=== PATIENT | female | born 1940 | race Caucasian/White ===

== ENCOUNTER → 2024-04-30 15:06 | Outpatient (CLI) | payer MEDICARE, SELFPAY ==
[2024-04-30 15:54] LABS: Add Manual Diff / Slide Review NO; Basophils Absolute Auto 0 /uL (0-100); Basophils Percent Auto 0.6 % (0-2); Eosinophils Absolute Auto 200 /uL (0-450); Eosinophils Percent Auto 2.5 % (2-4); Hematocrit 41.3 % (36-46); Hemoglobin 13.7 g/dL (12.0-16.0); Lymphocytes Absolute Auto 2000 /uL (1100-4500); Lymphocytes Percent Auto 31.2 % (25-40); Mean Corpuscular HGB Conc 33.1 % (30-36); Mean Corpuscular Hemoglobin 29.4 PG (26-34); Mean Corpuscular Volume 88.8 fL (80-100); Monocytes Absolute Auto 400 /uL (0-900); Monocytes Percent Auto 6.7 % (3-14); Neutrophils Absolute Auto 3900 /uL (1500-7000); Platelet Count 282 X10^3/uL (150-400); Red Blood Cell Count 4.65 X10^6/uL (4.0-5.2); Red Cell Distribution Width 13.4 % (11.6-14.8); White Blood Cell Count 6.6 X10^3/uL (4.5-11.0)
[2024-04-30 16:12] LABS: Alanine Aminotransferase 19 IU/L (<35); Albumin 4.1 g/dL (3.5-5.0); Albumin Globulin Ratio 1.5 (1.0-2.8); Alkaline Phosphatase 61 U/L (38-126); Aspartate Aminotransferase 25 IU/L (14-36); BUN Creatinine Ratio 23.5 (6-22); Bilirubin Total 0.5 mg/dL (0.2-1.3); Blood Urea Nitrogen 19 mg/dL (7-17); Carbon Dioxide 27 mmol/L (22-32); Chloride 105 mmol/L (98-107); Cholesterol 193 mg/dL (140-199); Estimated Glomerular Filt Rate > 60 mL/min (>60); Globulin 2.7 g/dL (1.7-4.1); Glucose 102 mg/dL (80-110); HDL Cholesterol 49 mg/dL (40-60); HEMOLYSIS < 15 (0-50); LDL Cholesterol Calculated 124 mg/dL (<100); Potassium 4.8 mmol/L (3.4-5.1); Sodium 139 mmol/L (137-145); Total Protein 6.8 g/dL (6.3-8.2); Triglycerides 102 mg/dL (35-150)
[2024-04-30 16:45] LABS: TSH w/ Reflex to FT4 1.92 uIU/mL (0.47-4.68)
== END ==
LOC: LAB 15:09
PROVIDERS: PCP Nurse Practitioner Family; Referring Provider Nurse Practitioner Family; Visit Provider Nurse Practitioner Family
DX: I10 Essential (primary) hypertension (principal); E03.9 Hypothyroidism, unspecified; G47.30 Sleep apnea, unspecified; E78.5 Hyperlipidemia, unspecified
CPT/HCPCS: 36415; 80053; 80061; 84443; 85025

== ENCOUNTER → 2024-07-22 09:57 | Outpatient (CLI) | payer MEDICARE, MEDICAID, SELFPAY ==
[2024-07-22 11:39] LABS: Appearance Urine UA CLEAR; Bilirubin Urine UA NEGATIVE (NEGATIVE); Color Urine UA YELLOW; Glucose Urine UA NEGATIVE (Negative); Ketones Urine UA NEGATIVE (NEGATIVE); Leukocyte Esterase Urine UA NEGATIVE (NEGATIVE); Nitrite Urine UA NEGATIVE (Negative); Occult Blood Urine UA TRACE-INTACT (Negative); Protein Urine UA NEGATIVE (Negative); Specific Gravity Urine UA >=1.030 (1.000-1.035); Urobilinogen Urine UA 0.2 E.U./dL (0.2)
[2024-07-22 11:50] LABS: Bacteria Urine Occasional (0-1); Culture Indicated Urine Cult Not Indicated; Mucus Urine 1+ (Negative); RBC Urine 0-1/HPF (0-5/HPF); Squamous Epithelial Cell Urine 1-5 /HPF (0-5/HPF); Urine Volume Low Vol <10mL (spun); WBC Urine None Seen (0-5/HPF)
== END ==
PROVIDERS: PCP Nurse Practitioner Family; Visit Provider Obstetrics & Gynecology Gynecology
DX: N39.46 Mixed incontinence (principal)
CPT/HCPCS: 81001

== ENCOUNTER 2024-10-28 12:07 | Day surgery (SDC) | payer MEDICARE, MEDICAID, SELFPAY ==
--- NOTE | 2024-10-18 12:54 | PM.GYNHP.1 ---
History of Present Illness History of Present Illness Narrative: Chioma Buckner is a 84 year old female Urge incontinence, refractory to 3 different medications Oxybutynin XL 15 mg dose, Myrbetriq, solifenacin Date of procedure:?? 10-28-24 Preoperative diagnosis:? OAB, urge UI Planned Procedure:?? cystoscopy with bladder botox injection Postop Meds none CC: Severe urinary incontinence HPI: 84-year-old female who presents for evaluation of above complaint.?? She reports onset of symptoms 5 years ago.?? She considers this a? Moderate to severe problem. She reports severe incontinence, using 5 depends a day, spends about 200 dollars a month on pads. she describes severe urge incontinence. She voids every 2 hours in the day and twice at night and does not make it to the toilet. She estimates that half the urine is in the toilet and half of it ends in the depend diaper. She leaks with an urge every time she voids. She denies stress incontinence. She does Kegel's every day and tries to use them when she gets an urge, and it does not help. She has tried to medications in the past. She VESIcare and Myrbetriq. Both had no benefit. Both had no side effects. She is unsure if she ever tried high dose. I suggested we try high-dose oxybutynin XL 15 mg a day. She wants to do this. Will order for her. She voices interest in Botox later if the medications do not work She reports surgery for prolapse about 20 years ago, A&P repair. she is Unsure if she had a sling. However she does not really describe stress incontinence. She has no urinary tract infections, no hematuria, no tobacco use. prior hyst -yes -x2 c-sec -times 1 Pelvic Floor Review of Systems: (HPI) Stress Urinary Incontinence symptoms (PAXTON): None Triggers include: None ? Urge Incontinence symptoms (Urge UI): Several times a day, with every void Triggers include: Full bladder with urge ?Pads: She wears 5 depends diapers a day Overactive Bladder symptoms (OAB):? ? Frequency: Every 2 hours Nocturia: X2 ? Urgency: Severe Prior incontinence treatment includes:? Medical: VESIcare and Myrbetriq? Surgical:? No? Kegels:?? Yes Physical therapy:?No? Pessary:?No? Diet / Fluids: Fluid restriction:? No Excessive fluids:?No Pain symptoms:? Painful bladder:???No Dysuria:???No Dyspareunia:? No Dysmenorrhea:? No Urinary Risk Factors UTI?s, recurrent: No Hematuria:? No Kidney Stones:?No? Tobacco use:? No Pelvic Organ Prolapse (POP) symptoms:?? Bulge: None Pressure and /or Heaviness: No Splint for defecation or voiding: No Voiding dysfunction: Abnormal stream:?No Strain to void:? No Incomplete emptying: She is unsure if he empties completely Voiding difficulty:?No Retention:??? No Bowel Function: Constipation: No Strain to defecate: No Fiber: Now Laxatives: No Fecal Incontinence:? Liquid stool:? No Solid stool:?No?? Sexually active:?No Incontinence with sex:? No ? General Review of Systems: Constitutional, CV, Endo, Musc-skel, Eyes, Cancer, Skin, Breast, GI, Heme/Lymph, Psych, Urinary, Neuro, Traveling Secretary, Resp, Sexual:??? Pertinent positives listed above in HPI All others reviewed and negative. All reviewed on patient questionnaire.? . . PFSH Medical History OAB (overactive bladder) Urge incontinence Cardiac murmur Urinary incontinence Physician orders for life-sustaining treatment (POLST) form indicates patient wish for sd-hvz-[id number] status Hypertension Back pain Hypothyroidism Anxiety Tobacco & Substance Use Smoking Status: Never smoker Exam Height 5 ft 2 in Weight 224 lb BMI 40.9 BP 120/62 Blood Pressure Location Lt brachial Position Sitting General: healthy, alert, coherent, no acute distress, cooperative, nontoxic Pulmonary: normal breathing, no distress Abdomen: soft, no mass, non-distended, no hernia, non-tender Vulva: Normal labia majora, labia minora, introitus, and clitoris, non-tender Urethra meatus: normal, no discharge Perineum: Normal, non-tender Urethra: No mass, non-tender Bladder: no mass, non-tender Vagina: No lesions, no discharge, mild atrophy, non-tender Prolapse none Levators: Non-tender, 3-4/ 5 kegel squeeze Hysterectomy Bimanual: no mass, no adnexal mass, non-tender Anus: No lesion, non-tender, no hemorrhoid Empty Cough Stress test: Neg, also had a negative cough stress test before she voided, unclear how much urine was in the bladder PVR: 10 mL by catheter Urethral angle hypermobile: Mild Pelvic Organ Prolapse: None Assessment & Plan (1) Urge incontinence: Status: Acute (2) OAB (overactive bladder): Assessment and Plan ? Patient counseled regarding above conditions.? Educational materials given to patient. 1. Overactive bladder and urge incontinence.?? This diagnosis and its etiology was discussed with the patient.? Treatment options were discussed including: Behavior changes ( Limit fluid intake, Avoiding fluid intake 3 hours before bedtime, Avoiding bladder irritants / follow bladder diet, Bladder training exercises), Kegel / pelvic floor muscle exercises,? OAB Medications, and procedures to include:? bladder botox A injections, Interstim, and PTNS.?? OAB handout given.? Bladder Diet handout given (Decrease caffeine, decrease acidic foods, decrease tobacco) Previously failed VESIcare and Myrbetriq Trial oxybutynin XL 15 mg a day Follow-up 2 months, [facility] Today she reports... No benefit with the oxybutynin XL 15 mg dose. Minimal side effects. She now would like to move forward with a bladder Botox injection, see counseling below. We discussed the risks as listed below. The other issue is that, at present, I can perform these in the operating room, but I do not yet have capability to do these as an outpatient procedure (due to facility and equipment and nursing reasons). That may occur in the future, hopefully. But for now, if the Botox works , and she needs a repeat bladder Botox injection, she will need a return trip to the operating room. When the Botox works, and then wears off, and a repeat injection is needed, this occurs on average about every 6-8 months, but can range every 4 months to 18 months Assessment: Urge incontinence, refractory to 3 different medications Oxybutynin XL 15 mg dose, Myrbetriq, solifenacin Recommendations: Botulinum toxin (also called Botox A) can be injected into the bladder to treat Overactive Bladder, Urge urinary incontinence, and Detrussor Overactivity.? These conditions result from bladder spasms, which cause urinary incontinence or urinary frequency.? A single vial dose of Botox A, 100 units, is mixed into a solution of saline.? Using a cystoscope, the botox is injected into about 10-20 sites in the bladder, leading to a mild paralysis of the bladder.? This treats the bladder spasms, and allows the bladder to store more urine, as it normally should do. The procedure takes about 30 minutes to do.? You will go home the same day.? There are no restrictions on activity after the procedure.? You will notice the results gradually over a period of several days. ? -? 70% success rate??? (about 35% are dry,? about 35% are improved),?? whereas 30% will have no benefit - when it works, the Bladder should be able to store more urine, and should prolong the interval between voids by 1-2 hours. ? -? 15- 25% risk of developing a UTI (urinary tract infection) after the procedure.?? Antibiotics will be given to try to prevent a UTI. ? -? 20% risk of incomplete bladder emptying.?? You may have voiding dysfunction (difficulty emptying bladder).?? There is? a? 1-2 % risk of urinary retention.?? I.e.?? may need to use a catheter to empty bladder. Follow-up: Bladder Botox injection in the operating room She will not need any postoperative pain medication. She will get a dose of antibiotics in the operating room. CC = here for preop Surgical Counselling Note Patient seen for surgical counselling.? She desires surgical repair. Please see? H & P for exam and discussion. Date of procedure:?? 10-28-24 Preoperative diagnosis:? OAB, urge UI Planned Procedure:?? cystoscopy with bladder botox injection Postop Meds none Patient counseled extensively about the Risks, Benefits, and Alternatives to surgery.? She was offered the opportunity to ask any questions, and all questions were answered. ? Surgical Risks include: Bleeding, Hemorrhage, Transfusion, Infection (especially wound or bladder), Injury to adjacent organs (especially bladder, ureter, bowel, blood vessels, nerves), Postop or Chronic Pain, need for Reoperation, and Life-threatening event (especially M.I., CVA, PE, DVT). Procedure Risks include: Failure to Cure condition, Recurrence of condition months or years later, Urinary incontinence, Voiding dysfunction or Urinary Retention with prolonged catheter use, Poor wound healing, Erosions of any mesh or graft used, Dyspareunia, Vaginal scarring or narrowing, Need for additional surgery (immediate or delayed).? The expected cure and improvement and failure rates were discussed. ? Good exercise tolerance, > 4 Mets. Her current medications were reviewed, and instructions given over which to use and which to discontinue before surgery.? Post-operative care instructions reviewed.? All of her questions were answered Pito Rosen MD UroGynecology & Pelvic Reconstructive Surgery [facility] Medical History (Updated 07/22/24 @ 10:04 by Pito Rosen MD) OAB (overactive bladder) Urge incontinence Cardiac murmur Urinary incontinence Physician orders for life-sustaining treatment (POLST) form indicates patient wish for kd-bgj-etsidajcevr status Hypertension Back pain Hypothyroidism Anxiety Meds Home Medications and Allergies Home Medications ?Medication ?Instructions ?Recorded ?Confirmed ?Type estradiol 0.5 mg tablet 0.5 mg PO DAILY 12/18/23 10/14/24 History trazodone 50 mg tablet 50 mg PO BEDTIME PRN insomnia #90 06/23/24 10/14/24 Rx tabs oxybutynin chloride 15 mg 15 mg PO DAILY #90 tabs 07/22/24 10/14/24 Rx tablet,extended release 24 hr hydrocodone 5 mg-acetaminophen 325 1 tab PO BID PRN pain #30 tabs 08/02/24 10/14/24 Rx mg tablet fluoxetine 40 mg capsule 40 mg PO DAILY #90 caps 09/29/24 10/14/24 Rx mometasone 0.1 % topical solution 1 applic topical DAILY PRN itching 09/29/24 10/14/24 Rx #60 mL levothyroxine 125 mcg tablet 125 mcg PO DAILY #100 tabs 10/12/24 10/14/24 Rx naproxen 500 mg tablet 500 mg PO DAILY PRN pain #30 tabs 10/14/24 10/14/24 Rx Allergies Allergy/AdvReac Type Severity Reaction Status Date / Time No Known Drug Allergies Allergy Verified 10/14/24 10:58 Assessment & Plan Time-Based Coding :: [TOTAL MINUTES] spent with patient and on the chart (including review of chart, obtaining history, exam, reviewing outside data, placing orders, documenting exam and treatment plan, and counseling patient) on [DATE].
[2024-10-27 12:16] VITALS: BMI 40.9
[2024-10-28 12:29] VITALS: BMI 40.2
[2024-10-28 12:35] VITALS: BP 162/77; PULSE 78; RESP 16; TEMP 37.2; O2SAT 96
[2024-10-28] MEDS: LACTATED RINGERS 1,000 ML 42 ML IV (12:40)
[2024-10-28] MEDS: GABAPENTIN 300 MG CAPSULE PO (12:43)
[2024-10-28] MEDS: ACETAMINOPHEN 325 MG TABLET 975 MG PO (12:43)
--- NOTE | 2024-10-28 15:07 | PM.PREOP ---
Pre-operative Note Interval Note History & Physical reviewed/Exam performed by Physician: Yes Changes to H&P: No
--- NOTE | 2024-10-28 16:19 | SUR.OPER ---
Lithotomy on padded OR bed, head on pillow, arms secured on padded arm boards at <90 degrees abduction. Legs secured in padded yellow fins stirrups. Surgeon in room to assist with positioning, all pressure points padded and covered.
[2024-10-28] MEDS: ONABOTULINUMTOXINA 100 UNIT VIAL INJ (16:22)
[2024-10-28] MEDS: METHYLENE BLUE 50 MG/10 ML VIAL 10 MG INJ (16:24)
[2024-10-28] MEDS: SODIUM CHLORIDE 0.9% FLUSH 20 ML IV (16:26)
--- NOTE | 2024-10-28 16:32 | PM.GYNOP.1 ---
Operative Date/Time/Diagnoses Date of procedure: 10/28/24 Time of procedure: 16:00 Pre-op diagnosis: Urge urinary incontinence Post-op diagnosis: same Procedure & Clinicians Procedure: Procedures Operation Date: 10/28/24 13:45 Actual Procedure Side Surgeon p Cystoscopy w/ bladder botox injection Pito Rosen MD Operative Notes Findings: Op note Surgeon / Physician:? Pito Rosen MD Assistants:?? none Pre-Op Diagnosis:?? OAB, urge incontinence Post-Op Diagnosis:?? Same? Procedure:?? Cystoscopy with bladder Botox A injection Findings (brief): ? 1.? cystoscopy with normal urethra, bladder, ureters, urethra ? 2.??100 units of Botox A solution was injected into the bladder, starting just above the trigone, in 4-5 rows of about 5 injections per row (total of approximately 20-25 injection sites in the bladder), Date of Surgery:? October 28, 2024 Complications:?? None Specimens:? None Anesthesia Technique:? General Estimated Blood Loss (mls):? None Blood Replacement (mls):? None Drains:? None Condition:? Stable Procedure in detail: After consent was confirmed, the patient was taken to the operating room and placed under general anesthesia without incident.? Sequential compression devices were in place and active.?? She was then prepped and draped in the usual sterile fashion after placement in the dorsal lithotomy position using the Holger stirrups.? Patient given IV antibiotic at beginning of case to prevent UTI 100 units of Botulinum Toxin A was reconstituted with 10 cc normal saline, and mixed with an additional 10 cc normal saline and 1 cc indigo carmine (to facilitate visualization of the?bladder injection sites.) The cystoscope with the 30 degree lens was used.? Cystoscopy showed a normal urethra, bladder, with no lesions, and normal ureters.? A cystoscope injection needle (needle tip 23 GA) was used to inject the Botox A solution into the bladder, starting just above the trigone, in 4-5 rows of about 5 injections per row (total of approximately 20-25 injection sites in the bladder), approximately 0.7-1 cc of Botox A solution per injection.? The needle was injected to a depth of 2-3 mm beneath the bladder epithelium.? The blue dye in the solution could be seen as a wheal under the bladder epithelium. The injections were performed without difficulty and the patient tolerated the procedure well. Sponge, needle and instrument count was correct.??? The patient tolerated the procedure well and was taken to the recovery room in stable condition. ? Pito Rosen MD UroGynecology & Pelvic Reconstructive Surgery [place], [place] Applied: other (Botox, 100 units, 1 vial)
[2024-10-28 16:37] VITALS: BP 146/63; PULSE 93; RESP 16; O2SAT 98
[2024-10-28 16:42] VITALS: BP 160/70; PULSE 95; RESP 16; TEMP 36.2; O2SAT 98
[2024-10-28 16:47] VITALS: BP 159/70; PULSE 91; RESP 16; O2SAT 98
[2024-10-28 17:09] VITALS: BP 148/70
== END 2024-10-28 17:12 | disposition home or self-care (01) ==
PROVIDERS: PCP Nurse Practitioner Family; Referring Provider Obstetrics & Gynecology Gynecology; Visit Provider Obstetrics & Gynecology Gynecology
PROC: (CPT 52287; principal; 2024-10-28 13:45)
DX: R39.15 Urgency of urination (principal); N32.81 Overactive bladder
CPT/HCPCS: 52287; J0585; J0690; J2704; J3010; Q9968

== ENCOUNTER 2024-12-01 20:29 | Emergency (ER) | payer MEDICARE, MEDICAID, SELFPAY ==
[2024-12-01 20:38] VITALS: BP 183/77; PULSE 66; RESP 16; TEMP 36.3; O2SAT 96; BMI 41.1
--- NOTE | 2024-12-01 23:39 | DI.CT.S_ITS ---
PROCEDURE: CT HEAD/BRAIN WO CON INDICATIONS: head trauma, lac, age 84 TECHNIQUE: Noncontrast 4.5 mm thick angled axial sections acquired from the foramen magnum to the vertex, with coronal and sagittal reformats. For radiation dose reduction, the following was used: automated exposure control, adjustment of mA and/or kV according to patient size. COMPARISON: None. FINDINGS: Image quality: Diagnostic. CSF spaces: Basal cisterns are patent. No extra-axial fluid collections. Ventricles are normal in size and shape. Brain: No midline shift. No intracranial mass effect or hemorrhage. No area of hypodensity in a large vascular distribution to suggest acute infarction. Periventricular hypodensity consistent with chronic microvascular ischemic change. Age-related parenchymal loss. Skull and face: Calvarium and visualized facial bones are intact, without suspicious lesions. Sinuses: Opacification of the left maxillary sinus. Partially visualized. The left maxillary sinus appears diminutive compared to the right and there is bone thickening which suggests a chronic etiology. IMPRESSION: 1. No acute intracranial hemorrhage. 2. Chronic left maxillary sinus opacification. Partially visualized. Dictated by: Dakotah Esposito M.D. on 12/02/2024 at 1:53 Approved by: Dakotah Esposito M.D. on 12/02/2024 at 1:56
[2024-12-01 23:43] VITALS: PULSE 56; O2SAT 99
[2024-12-01 23:45] VITALS: BP 192/84; PULSE 55; RESP 18; O2SAT 97
[2024-12-02 00:03] VITALS: PULSE 72; O2SAT 98
[2024-12-02 00:30] VITALS: PULSE 64; RESP 17; O2SAT 97
--- NOTE | 2024-12-02 00:31 | ED.HEATRA ---
HPI - Head Injury General Chief complaint: Head Injury Stated complaint: Fall, head laceration, within the hour Time Seen by Provider: 12/01/24 23:39 Source: patient Mode of arrival: Wheelchair History of Present Illness HPI Narrative: 84 yash old female not on chronic anticoagulation, tripped and fell prior to arrival, cut the top of her head, lots of bleeding that has slowed. No preceding chest pain or shortness of breathing or palpitations. No recent illness symptoms, fevers, chills, cough. No recent diarrhea. No nausea or vomiting. No focal weakness or numbness. Denies pain to front of face, neck, has chronic back pain about the same, no upper or lower extrmity injuries. Related Data Home Medications ?Medication ?Instructions ?Recorded ?Confirmed estradiol 0.5 mg tablet 0.5 mg PO DAILY 12/18/23 11/17/24 Previous Rx's ?Medication ?Instructions ?Recorded fluoxetine 40 mg capsule 40 mg PO DAILY #90 caps 09/29/24 mometasone 0.1 % topical solution 1 applic topical DAILY PRN itching 09/29/24 #60 mL levothyroxine 125 mcg tablet 125 mcg PO DAILY #100 tabs 10/12/24 naproxen 500 mg tablet 500 mg PO DAILY PRN pain #30 tabs 11/11/24 trazodone 50 mg tablet 50 mg PO BEDTIME PRN insomnia #90 11/23/24 tabs Allergies Allergy/AdvReac Type Severity Reaction Status Date / Time No Known Drug Allergies Allergy Verified 12/01/24 20:37 Patient History Medical History (Updated 12/02/24 @ 01:31 by Patrice Mariee MD) OAB (overactive bladder) Urge incontinence Cardiac murmur Urinary incontinence Physician orders for life-sustaining treatment (POLST) form indicates patient wish for fy-eur-xgigelaztwi status Hypertension Back pain Hypothyroidism Anxiety Surgical History (Updated 10/27/24 @ 12:45 by Sanjana Fitch RN) History of gynecologic surgery (~2004) Social History household members: other Smoking Status: Never smoker alcohol intake: current Smoking Status: Never smoker Exam Narrative Exam Narrative: GENERAL: Well-developed patient, in mild distress. HEAD: No obvious craniofacial anterior trauma, vertex sagittal midline linear laceration 5 cm in length, no visible galea or foreign body, no surrounding crepitance, not actively bleeding. EYES: Pupils equal round and reactive. Extraocular motions intact. No scleral icterus. No injection or drainage. ENT: Nose without bleeding, purulent drainage. Throat without erythema, tonsillar hypertrophy or exudate. Airway patent. NECK: Trachea midline. Non tender CARDIOVASCULAR: Regular rate and rhythm without murmurs, gallops, or rubs. RESPIRATORY: Clear to auscultation. Breath sounds equal bilaterally. No wheezes, rales, or rhonchi. GASTROINTESTINAL: Abdomen soft, non-tender, nondistended. EXTREMITIES: No edema or joint tenderness. BACK: Nontender without deformity or crepitance. No flank tenderness. NEURO: AOx3. Motor functions grossly nonfocal. SKIN: No rash or erythema of visible areas Initial Vital Signs Initial Vital Signs: Vital Signs Temperature 97.4 F L 12/01/24 20:38 Pulse Rate 66 12/01/24 20:38 Respiratory Rate 16 12/01/24 20:38 Blood Pressure 183/77 H 12/01/24 20:38 Pulse Oximetry 96 12/01/24 20:38 Oxygen Delivery Method Room Air 12/01/24 20:38 Procedures Laceration Repair Laceration 1: Time of procedure: 01:00 Description: linear Depth: simple, single layer Local Anesthetic: lidocaine 1% Amount of anesthesia used (mL): 5 Skin layer closed with: nicole Number of sutures: 7 (nicole placed) Course Orders Ordered: Discontinued Medications Bacitracin (Bacitracin Oint 0.9 Gm Pckt) 1 applic TOP NOW ONE Stop: 12/02/24 00:57 Last Admin: 12/02/24 01:16 Dose: 1 applic Documented By: SD Diphtheria/Tetanus/Acell Pertussis (Tet,Diph,Pertuss(Acell),Vac/Pf 0.5 Ml Syringe) 0.5 ml IM .ONCE ONE Stop: 12/02/24 00:50 Last Admin: 12/02/24 01:16 Dose: 0.5 ml Documented By: SD Vital Signs Vital signs: Vital Signs - 8 hr 12/01/24 20:38 12/01/24 23:43 12/01/24 23:45 Temperature 97.4 F L Pulse Rate 66 56 L Respiratory Rate 16 18 Blood Pressure 183/77 H 192/84 H Pulse Oximetry 96 99 Oxygen Delivery Method Room Air 12/01/24 23:45 12/02/24 00:03 12/02/24 00:30 Temperature Pulse Rate 55 L 72 64 Respiratory Rate 17 Blood Pressure Pulse Oximetry 97 98 97 Oxygen Delivery Method Room Air [facility] - Head Injury Imaging Data CT head noncontrast: My Impression: No obvious cranial fractures, no obvious intracranial bleed, some age-related atrophy. ED wet read. Radiologist's Impression: CT head noncontrast. Impressions: ?generalized involutional changes noted. No acute intracranial abnormality identified. ? See tele radiology report. [facility] Narrative Medical decision making narrative: 84-year-old female had ground level fall, lost her balance while trying to carry plants, cuts on top of her head, takes no blood thinner medications. No loss of consciousness. No nausea or vomiting. No focal neuro weakness or numbness. CT head noncontrast. Impressions: ?Generalized involutional changes noted. No acute intracranial abnormality identified. ? See tele radiology report. Vertex midline linear laceration, primary closure with nicole, see procedure note. Tolerated well. Tetanus updated. DC home. Consider wound check with PCP in 2-3 days, likely staple removal 7 days in clinic with PCP. Return precautions and laceration wound care discussed. Discharge Plan Departure Patient Disposition: Home Clinical Impression: Laceration of scalp Activity Restrictions/Additional Instructions: Mechanical ground level fall with 5 cm laceration vertex, no blood thinner medications taken. CT scan head showed no intracranial hemorrhage, no fractures. Primary closure of this wound with nicole. Consider wound check with your regular doctor in the next 2-3 days. Staple removal likely it 7 days. Tetanus shot was given, updated in the emergency department tonight. Take Tylenol and or Motrin as needed for pain control. Recheck earlier to this/nearest emergency department for any change worsening symptoms or any concerns prior. Prescriptions: No Action fluoxetine 40 mg capsule 40 mg PO DAILY Qty: 90 2RF mometasone 0.1 % solution 1 applic topical DAILY PRN (Reason: itching) Qty: 60 0RF levothyroxine 125 mcg tablet 125 mcg PO DAILY Qty: 100 3RF naproxen 500 mg tablet 500 mg PO DAILY PRN (Reason: pain) Qty: 30 1RF trazodone 50 mg tablet 50 mg PO BEDTIME PRN (Reason: insomnia) Qty: 90 1RF estradiol 0.5 mg tablet 0.5 mg PO DAILY Rx Instructions: off 5 days; repeat cycle Referrals: Lisa Gonsales, [employer] [Primary Care Provider, Family Practice] Stand Alone Forms: Patient Portal/API
[2024-12-02 01:00] VITALS: PULSE 55; O2SAT 96
--- NOTE | 2024-12-02 01:09 | PC.NURSE ---
Irrigated wound with normal saline. well approx 5cm wound. Dr. Mariee placed 7 nicole.
[2024-12-02] MEDS: BACITRACIN OINT 0.9 GM PCKT 1 APPLIC TOP (01:16)
[2024-12-02] MEDS: TET,DIPH,PERTUSS(ACELL),VAC/PF 0.5 ML SYRINGE IM (01:16)
[2024-12-02 01:28] VITALS: BP 193/82; PULSE 63; O2SAT 96
[2024-12-02 01:30] VITALS: BP 189/77; PULSE 55; O2SAT 98
== END 2024-12-02 01:51 | disposition home or self-care (01) ==
PROVIDERS: Emergency Provider Emergency Medicine; PCP Nurse Practitioner Family
DX: S01.01XA Laceration without foreign body of scalp, initial encounter (principal); W01.0XXA Fall on same level from slipping, tripping and stumbling without subsequent striking against object, initial encounter; Z23 Encounter for immunization
CPT/HCPCS: 12002; 70450; 90471; 99283; 99284; 90715